=== PATIENT | female | born 1960 | race Two or more races ===

== ENCOUNTER 2017-01-10 18:02 | Emergency (ER) | payer MEDICAID ==
[~2017-01-10] VITALS: Ht 160 cm; Wt 66.7 kg
[2017-01-10 18:18] VITALS: BP 179/67
== END 2017-01-10 20:01 | disposition home or self-care (01) ==
LOC: ER 18:08
DX: G89.29 Other chronic pain (principal); M54.9 Dorsalgia, unspecified